=== PATIENT | female | born 2000 | race Caucasian/White ===

== ENCOUNTER 2019-06-14 15:18 | Emergency (ER) | payer OTHER ==
--- NOTE | 2019-06-14 16:05 | ER Document Report ---
ED Medical Screen (RME) - General Chief Complaint: Suicidal Ideation Stated Complaint: SUICIDAL IDEATION Time Seen by Provider: 06/14/19 15:55 Mode of Arrival: Ambulatory Information source: Patient Notes: Patient is a 18-year-old female who presents to the ER today for suicidal ideations, she states that she wants to cut her wrists to kill herself. Patient states that this started approximately 3 days ago. She is out of her anxiety and depression medications as of 3 days ago as well. Patient states that the trigger was getting out of the [employer] and being kicked out of her house. TRAVEL OUTSIDE OF THE [place] IN LAST 30 DAYS: No - Related Data Allergies/Adverse Reactions: No Known Allergies Allergy (Verified 06/14/19 15:31) Past Medical History - General Information source: Patient - Social History Chew tobacco use (# tins/day): No Frequency of alcohol use: None Drug Abuse: None Renal/ Medical History: Denies: Hx Peritoneal Dialysis Psychiatric Medical History: Reports: Hx Depression Past Surgical History: Reports: Hx Appendectomy, Hx Oral Surgery Review of Systems - Review of Systems Neurological/Psychological: See HPI Physical Exam - Vital signs Vitals: Temp Pulse Resp BP Pulse Ox 98.2 F 82 12 131/64 H 98 06/14/19 15:38 06/14/19 15:38 06/14/19 15:38 06/14/19 15:38 06/14/19 15:38 - Notes Notes: PHYSICAL EXAMINATION: GENERAL: Well-appearing and in no acute distress. LUNGS: CTAB and equal. No wheezes rales or rhonchi. HEART: Regular rate and rhythm without murmurs Course - Vital Signs Vital signs: Temp Pulse Resp BP Pulse Ox 98.2 F 82 12 131/64 H 98 06/14/19 15:38 06/14/19 15:38 06/14/19 15:38 06/14/19 15:38 06/14/19 15:38
[2019-06-14 17:01] LABS: ABSOLUTE LYMPHOCYTES (AUTO) 1.9 10^3/uL (0.5-4.7); ABSOLUTE MONOCYTES (AUTO) 0.7 10^3/uL (0.1-1.4); ABSOLUTE NEUT (AUTO) 7.5 10^3/uL (1.7-8.2); BASOPHILS % (AUTO) 0.4 % (0-2); EOSINOPHILS % (AUTO) 0.3 % (0-6); HEMATOCRIT 41.8 % (36.0-47.0); HEMOGLOBIN 14.2 g/dL (12.0-15.5); LYMPHOCYTES % (AUTO) 18.9 % (13-45); MEAN CORPUSCULAR HEMOGLOBIN 28.3 pg (27.0-33.4); MEAN CORPUSCULAR HGB CONC 33.9 g/dL (32.0-36.0); MEAN CORPUSCULAR VOLUME 83 fl (80-97); MONOCYTES % (AUTO) 6.8 % (3-13); PLATELET COUNT 348 10^3/uL (150-450); RED BLOOD COUNT 5.01 10^6/uL (3.72-5.28); SEGMENTED NEUTROPHILS % (AUTO) 73.6 % (42-78); TOTAL CELLS COUNTED % (AUTO) 100 %; WHITE BLOOD COUNT 10.1 10^3/uL (4.0-10.5)
[2019-06-14 17:20] LABS: ALANINE AMINOTRANSFERASE 10 U/L (5-35); ALBUMIN 4.7 g/dL (3.7-5.6); ALKALINE PHOSPHATASE 69 U/L (50-135); ANION GAP 12 (5-19); ASPARTATE AMINO TRANSFERASE 24 U/L (5-30); BILIRUBIN,DIRECT 0.2 mg/dL (0.0-0.4); BILIRUBIN,TOTAL 0.6 mg/dL (0.2-1.3); BLOOD UREA NITROGEN 10 mg/dL (7-20); CALCIUM 10.2 mg/dL (8.4-10.2); CARBON DIOXIDE 25 mmol/L (22-30); CHLORIDE 103 mmol/L (98-107); GLUCOSE 101 mg/dL (75-110); POTASSIUM 4.4 mmol/L (3.6-5.0); TOTAL PROTEIN 8.2 g/dL (6.3-8.2)
[2019-06-14 17:27] LABS: ACETAMINOPHEN < 10 ug/mL (10-30); ALCOHOL < 10 mg/dL (NONE DETECTED); SALICYLATE < 1.0 mg/dL (2.0-20.0)
[2019-06-14] MEDS ORDERED: ESCITALOPRAM OXALATE 10 MG TABLET PO ONE (18:34)
[2019-06-14] MEDS ORDERED: ARIPIPRAZOLE 2 MG TABLET PO ONE (18:35)
[2019-06-14] MEDS ORDERED: CLONIDINE HCL 0.1 MG TABLET PO ONE (18:35)
[2019-06-14] MEDS ORDERED: GABAPENTIN 300 MG CAPSULE PO ONE (18:35)
[2019-06-14 18:44] LABS: APPEARANCE,URINE CLOUDY; BILIRUBIN,URINE NEGATIVE (NEGATIVE); GLUCOSE, URINE NEGATIVE (NEGATIVE); KETONES,URINE 20 mg/dL (NEGATIVE); LEUKOCYTE ESTERASE,URINE MODERATE (NEGATIVE); NITRITE,URINE NEGATIVE (NEGATIVE); PROTEIN,URINE 30 mg/dL (NEGATIVE); URINE SPECIFIC GRAVITY 1.027; UROBILINOGEN,URINE NEGATIVE mg/dL (<2.0)
[2019-06-14 18:45] LABS: COLOR,URINE YELLOW
[2019-06-14 18:56] LABS: URINE AMPHETAMINES SCREEN NEGATIVE; URINE BARBITURATES SCREEN NEGATIVE; URINE BENZODIAZEPINES SCREEN NEGATIVE; URINE COCAINE SCREEN NEGATIVE; URINE MARIJUANA (THC) SCREEN NEGATIVE; URINE METHADONE SCREEN NEGATIVE; URINE PHENCYCLIDINE SCREEN NEGATIVE
--- NOTE | 2019-06-14 19:21 | ER Document Report ---
Addendum entered and electronically signed by SAI LOAIZA MD 06/15/19 15:30: Discharge - Discharge Clinical Impression: Suicidal ideation, Self-injurious behavior Major depressive disorder Qualifiers: Major depression recurrence: recurrent Active/Remission status: currently active Major depression episode severity: severe Psychotic features: without psychotic features Qualified Code(s): F33.2 - Major depressive disorder, recurrent severe without psychotic features Condition: Stable Disposition: HOME, SELF-CARE Additional Instructions: You have been evaluated by both medical and behavioral health providers while in the emergency department. You have been cleared from both acute medical and psychiatric services. Depression and Anxiety are symptoms that often increase with stress. Situational factors related to career have likely caused increased stress. You have been linked to outpatient providers for therapy and medication management. Your friend has been included in plan of care which includes him being in charge of medications and administration with increased monitoring/supervision. DEPRESSION: Your evaluation reveals that you have mental depression. While symptoms may be vague, they often include disturbance of sleep, fatigue, loss of appetite, a nd general loss of interest in life. While depression may be a side effect of drugs, or a reaction to a major change in your life, many cases have no known cause. If depression is acute, and related to a major loss in your life, you can expect it to clear completely with time. If you have been depressed a long time, are prone to repeated bouts of depression or low mood, or have been thinking of suicide, get help. Depression can be treated with anti-depressant medication and counselling. Long-term depression will often take a few weeks to clear, even with appropriate medication. Follow-up care is important. SUICIDAL IDEATION: Suicidal ideation is a common medical term for thoughts about suicide, which may be as detailed as a formulated plan, without the suicidal act itself. Although most people who undergo suicidal ideation do not commit suicide, some go on to make suicide attempts. The range of suicidal ideation varies greatly from fleeting to detailed planning, role playing, and unsuccessful attempts. While thoughts about suicide are common, most people do not carry out serious actions to commit suicide. Based upon your evaluation and discussion with you, we do not believe you are currently at risk to act upon your thoughts of suicide. You have agreed to return to the Emergency Department, at any time, if you feel inclined to act upon your suicidal thoughts. FOLLOW-UP CARE: You were restarted on your home medications and will be provided prescriptions for those. You have outpatient follow up for medications management at [facility] ([facility]) on 03/28/19 at 0730. You are recommended to obtain counseling/therapy services from the [facility] [phone]) and just have to go to office in person to complete application. You have also been provided [facility] Mobile Crisis number for crisis, talk therapy and linkage to other services/supports. If you experience worsening or a significant change in your symptoms, notify the physician immediately, utilize mobile crisis or return to the Emergency Department at any time for re-evaluation. Prescriptions: Gabapentin [Neurontin 300 mg Capsule] 300 mg PO QHS #14 cap Aripiprazole [Abilify 2 mg Tablet] 2 mg PO DAILY #15 tablet Escitalopram Oxalate [Lexapro] 40 mg PO DAILY #28 tablet Prazosin HCl 2 mg PO DAILY #14 capsule Referrals: [facility] [Provider Group] - 06/28/19 7:30 am [facility] [Outside] - Follow up as needed Addendum entered and electronically signed by ABELARDO CAMPBELL LPC 06/15/19 15:16: Discharge - Discharge Clinical Impression: Suicidal ideation, Self-injurious behavior Major depressive disorder Qualifiers: Major depression recurrence: recurrent Active/Remission status: currently active Major depression episode severity: severe Psychotic features: without psychotic features Qualified Code(s): F33.2 - Major depressive disorder, recurrent severe without psychotic features Condition: Stable Disposition: HOME, SELF-CARE Additional Instructions: You have been evaluated by both medical and behavioral health providers while in the emergency department. You have been cleared from both acute medical and psychiatric services. Depression and Anxiety are symptoms that often increase with stress. Situational factors related to career have likely caused increased stress. You have been linked to outpatient providers for therapy and medication management. Your friend has been included in plan of care which includes him being in charge of medications and administration with increased monitoring/supervision. DEPRESSION: Your evaluation reveals that you have mental depression. While symptoms may be vague, they often include disturbance of sleep, fatigue, loss of appetite, and general loss of interest in life. While depression may be a side effect of drugs, or a reaction to a major change in your life, many cases have no known cause. If depression is acute, and related to a major loss in your life, you can expect it to clear completely with time. If you have been depressed a long time, are prone to repeated bouts of depression or low mood, or have been thinking of suicide, get help. Depression can be treated with anti-depressant medication and counselling. Long-term depression will often take a few weeks to clear, even with appropriate medication. Follow-up care is important. SUICIDAL IDEATION: Suicidal ideation is a common medical term for thoughts about suicide, which may be as detailed as a formulated plan, without the suicidal act itself. Although most people who undergo suicidal ideation do not commit suicide, some go on to make suicide attempts. The range of suicidal ideation varies greatly from fleeting to detailed planning, role playing, and unsuccessful attempts. While thoughts about suicide are common, most people do not carry out serious actions to commit suicide. Based upon your evaluation and discussion with you, we do not believe you are currently at risk to act upon your thoughts of suicide. You have agreed to return to the Emergency Department, at any time, if you feel inclined to act upon your suicidal thoughts. FOLLOW-UP CARE: You were restarted on your home medications and will be provided prescriptions for those. You have outpatient follow up for medications management at [facility] ([facility]) on 03/28/19 at 0730. You are recommended to obtain counseling/therapy services from the [facility] [phone]) and just have to go to office in person to complete application. You have also been provided [facility] Mobile Crisis number for crisis, talk therapy and linkage to other services/supports. If you experience worsening or a significant change in your symptoms, notify the physician immediately, utilize mobile crisis or return to the Emergency Department at any time for re-evaluation. Referrals: [facility] [Outside] - Follow up as needed [facility] [Provider Group] - 06/28/19 7:30 am Original Note: ED Psych Disorder / Suicide - General Chief Complaint: Suicidal Ideation Stated Complaint: SUICIDAL IDEATION Time Seen by Provider: 06/14/19 15:55 Mode of Arrival: Ambulatory Notes: 18-year-old female patient emergency department with suicidal ideation. Patient was kicked out of the [employer] for her mental health issues. States that she has been taking any of her medications for the last 4 days and since that time she has been wanting to . Has done nothing other than superficial scratches to hurt herself but knows that she needs some help. Here with her friend. Denies any ingestion. Does have this recent history in the last 7 months of major depression and needing medication. Patient feels like a failure. Does not think life is worth living at this time. TRAVEL OUTSIDE OF THE [place] IN LAST 30 DAYS: No - HPI Patient complains to provider of: Self injury Onset was: Gradual Severity: Moderate Pain Level: Denies - Related Data Allergies/Adverse Reactions: No Known Allergies Allergy (Verified 06/14/19 15:31) Past Medical History - General Information source: Patient - Social History Smoking Status: Current Every Day Smoker Chew tobacco use (# tins/day): No Frequency of alcohol use: None Drug Abuse: None Lives with: Alone Family History: Reviewed & Not Pertinent Patient has suicidal ideation: Yes Patient has homicidal ideation: No Renal/ Medical History: Denies: Hx Peritoneal Dialysis Psychiatric Medical History: Reports: Hx Depression Past Surgical History: Reports: Hx Appendectomy, Hx Oral Surgery Review of Systems - Review of Systems Notes: Constitutional: denies: Chills, Diaphoresis, Fever, Malaise, Weakness EENT: denies: Eye discharge, Blurred vision, Tearing, Double vision, Nose congestion, Nose discharge, Throat swelling, Mouth pain Cardiovascular: denies: Palpitations, Heart racing, Orthopnea, Dyspnea, Chest pain Respiratory: denies: Cough, Hurts to breathe, Wheezing, Shortness of breath Gastrointestinal: denies: Abdominal pain, Diarrhea, Nausea, Vomiting, Black stools, bright red blood in stool Genitourinary: denies: Burning, Dysuria, Discharge, Frequency, Flank pain, Hematuria Musculoskeletal: denies: Joint pain, Joint swelling, Muscle pain, Muscle stiffness, back pain Hematologic/Lymphatic: denies: Anemia, Easy bleeding, Easy bruising, Blood clots Neurological/Psychological: denies: Confusion, Dementia, +Depression, + suicidal ideation Skin: No lesions, no masses, no skin breakdown, no abscesses Physical Exam - Vital signs Vitals: Temp Pulse Resp BP Pulse Ox 98.2 F 82 12 131/64 H 98 06/14/19 15:38 06/14/19 15:38 06/14/19 15:38 06/14/19 15:38 06/14/19 15:38 Interpretation: Normal - General General appearance: Appears well, Alert - HEENT Head: Normocephalic, Atraumatic Eyes: Normal Pupils: PERRL - Respiratory Respiratory status: No respiratory distress Chest status: Nontender Breath sounds: Normal Chest palpation: Normal - Cardiovascular Rhythm: Regular Heart sounds: Normal auscultation Murmur: No - Abdominal Inspection: Normal Distension: No distension Bowel sounds: Normal Tenderness: Nontender Organomegaly: No organomegaly - Back Back: Normal, Nontender - Extremities General upper extremity: Normal inspection, Nontender, Normal color, Normal ROM, Normal temperature General lower extremity: Normal inspection, Nontender, Normal color, Normal ROM, Normal temperature, Normal weight bearing. No: Vaelrie's sign - Neurological Neuro grossly intact: Yes Cognition: Normal Orientation: AAOx4 [place] Coma Scale Eye Opening: Spontaneous [place] Coma Scale Verbal: Oriented Ruel Coma Scale Motor: Obeys Commands Ruel Coma Scale Total: 15 Speech: Normal Motor strength normal: LUE, RUE, LLE, RLE Sensory: Normal - Psychological Associated symptoms: Normal affect, Normal mood - Skin Skin Temperature: Warm Skin Moisture: Dry Skin Color: Other - Facial scratches on the arms left greater than the right. Nothing is excessively deep. Course - Re-evaluation Re-evalutation: 06/14/19 19:29 Laboratory 06/14/19 06/14/19 06/14/19 16:35 16:35 16:35 WBC 10.1 RBC 5.01 Hgb 14.2 Hct 41.8 MCV 83 MCH 28.3 MCHC 33.9 RDW 14.0 Plt Count 348 Seg Neutrophils % 73.6 Lymphocytes % 18.9 Monocytes % 6.8 Eosinophils % 0.3 Basophils % 0.4 Absolute Neutrophils 7.5 Absolute Lymphocytes 1.9 Absolute Monocytes 0.7 Absolute Eosinophils 0.0 Absolute Basophils 0.0 Sodium 139.8 Potassium 4.4 Chloride 103 Carbon Dioxide 25 Anion Gap 12 BUN 10 Creatinine 0.77 Est GFR ( Amer) > 60 Est GFR (Non-Af Amer) > 60 Glucose 101 Calcium 10.2 Total Bilirubin 0.6 Direct Bilirubin 0.2 Neonat Total Bilirubin Not Reportable Neonat Direct Bilirubin Not Reportable Neonat Indirect Bili Not Reportable AST 24 ALT 10 Alkaline Phosphatase 69 Total Protein 8.2 Albumin 4.7 Serum HCG, Qual NEGATIVE Urine Color Urine Appearance Urine pH Ur Specific [place] Urine Protein Urine Glucose (UA) Urine Ketones Urine Blood Urine Nitrite Urine Bilirubin Urine Urobilinogen Ur Leukocyte Esterase Urine WBC (Auto) Urine RBC (Auto) Squamous Epi Cells Auto Urine Mucus (Auto) Urine Ascorbic Acid Salicylates < 1.0 L Urine Opiates Screen Urine Methadone Screen Acetaminophen < 10 L Ur Barbiturates Screen Ur Phencyclidine Scrn Ur Amphetamines Screen U Benzodiazepines Scrn Urine Cocaine Screen U Marijuana (THC) Screen Serum Alcohol < 10 06/14/19 06/14/19 16:35 16:35 WBC RBC Hgb Hct MCV MCH MCHC RDW Plt Count Seg Neutrophils % Lymphocytes % Monocytes % Eosinophils % Basophils % Absolute Neutrophils Absolute Lymphocytes Absolute Monocytes Absolute Eosinophils Absolute Basophils Sodium Potassium Chloride Carbon Dioxide Anion Gap BUN Creatinine Est GFR ( Amer) Est GFR (Non-Af Amer) Glucose Calcium Total Bilirubin Direct Bilirubin Neonat Total Bilirubin Neonat Direct Bilirubin Neonat Indirect Bili AST ALT Alkaline Phosphatase Total Protein Albumin Serum HCG, Qual Urine Color YELLOW Urine Appearance CLOUDY Urine pH 5.0 Ur Specific [place] 1.027 Urine Protein 30 H Urine Glucose (UA) NEGATIVE Urine Ketones 20 H Urine Blood LARGE H Urine Nitrite NEGATIVE Urine Bilirubin NEGATIVE Urine Urobilinogen NEGATIVE Ur Leukocyte Esterase MODERATE H Urine WBC (Auto) 61 Urine RBC (Auto) 2 Squamous Epi Cells Auto 7 Urine Mucus (Auto) MANY Urine Ascorbic Acid NEGATIVE Salicylates Urine Opiates Screen NEGATIVE Urine Methadone Screen NEGATIVE Acetaminophen Ur Barbiturates Screen NEGATIVE Ur Phencyclidine Scrn NEGATIVE Ur Amphetamines Screen NEGATIVE U Benzodiazepines Scrn NEGATIVE Urine Cocaine Screen NEGATIVE U Marijuana (THC) Screen NEGATIVE Serum Alcohol - Vital Signs Vital signs: Temp Pulse Resp BP Pulse Ox 98.2 F 82 12 131/64 H 98 06/14/19 15:38 06/14/19 15:38 06/14/19 15:38 06/14/19 15:38 06/14/19 15:38 - Laboratory Result Diagrams: 06/14/19 16:35 06/14/19 16:35 Laboratory results interpreted by me: 06/14/19 06/14/19 16:35 16:35 Urine Protein 30 H Urine Ketones 20 H Urine Blood LARGE H Ur Leukocyte Esterase MODERATE H Salicylates < 1.0 L Acetaminophen < 10 L - EKG Interpretation by Me EKG shows normal: Sinus rhythm, [place], Intervals, QRS Complexes, ST-T Waves Discharge - Discharge Clinical Impression: Major depressive disorder Qualifiers: Major depression recurrence: recurrent Active/Remission status: currently active Major depression episode severity: severe Psychotic features: without psychotic features Qualified Code(s): F33.2 - Major depressive disorder, recurrent severe without psychotic features Condition: Good Disposition: HOME, SELF-CARE
--- NOTE | 2019-06-14 23:20 | EKG REPORT ---
SEVERITY:- NORMAL ECG - SINUS RHYTHM : Confirmed by: Ashwini Bar 14-Jun-2019 23:19:48
--- NOTE | 2019-06-15 10:00 | ER Document Report ---
Doctor's Note Notes: 06/15/19 09:59 18-year-old female recently kicked out of the [employer] for mental health issues with no medications for the last 4 days with suicidal ideations with a plan of cutting. Urine analysis shows possible infection. negative. Vital signs stable. Awaiting psychiatric evaluation. I have sent a urine culture. 06/15/19 15:25 Patient still denies any abdominal pain or dysuria. No fevers or vomiting. Urine culture is pending. The psychology/psychiatry team is seen and assessed the patient. They do not believe that the patient is an immediate threat to himself or others. I do not believe patient feels IVC criteria. They would like to restart the patient on 4 different medications with discharge home with follow-up with [facility] that they set up for her. That appointment is for June 28. I will provide 2 weeks worth of medications.
[2019-06-15] MEDS ORDERED: ARIPIPRAZOLE 2 MG TABLET PO ONE (14:19)
[2019-06-15] MEDS ORDERED: ESCITALOPRAM OXALATE 10 MG TABLET PO ONE (14:20)
[2019-06-15 17:01] VITALS: BP 119/72
[2019-06-15] MEDS ORDERED: CLONIDINE HCL 0.1 MG TABLET PO SCH (22:00)
[2019-06-15] MEDS ORDERED: GABAPENTIN 300 MG CAPSULE PO SCH (22:00)
== END 2019-06-15 17:16 | disposition home or self-care (01) ==
LOC: ER 15:18
DX: F33.2 Major depressive disorder, recurrent severe without psychotic features (principal); Z72.89 Other problems related to lifestyle; F17.200 Nicotine dependence, unspecified, uncomplicated
CPT/HCPCS: 93005; 99285; 36415; 87086; 80307 ×4; 84703; 85025; 80053; 81001; 93010; J3490 ×2